=== PATIENT | male | born 1990 | race Caucasian/White ===

== ENCOUNTER 2018-11-23 20:40 | Observation (INO) | payer BC ==
[2018-11-23] MEDS ORDERED: Sodium Chloride 0.9% 2.5 ML Syringe FLUSH PRN (20:44)
[2018-11-23] MEDS ORDERED: Sodium Chloride 0.9% 10 ML Syringe FLUSH PRN (20:44)
[2018-11-23] MEDS ORDERED: Bacitracin Oint 1 GM U/D Packet TOP ONE (20:46)
[2018-11-23] MEDS ORDERED: Sodium Chloride 0.9% 1,000 ML IV ONE (20:46)
[2018-11-23] MEDS ORDERED: Morphine 2 MG/ML Syringe IVPUSH ONE (20:47)
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
[2018-11-23] MEDS ORDERED: Iopamidol 755 MG/ML 200 ML Multipack Bottle IVPUSH ONE (21:21)
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
[2018-11-23 22:14] LABS: CHLORIDE,CL 100 mmol/L (98-107); SODIUM,NA 135 mmol/L (136-148)
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
[2018-11-23] MEDS ORDERED: Lactated Ringers 1,000 ML IV SCH ×2 (23:00→23:45)
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
[2018-11-23] MEDS ORDERED: Ondansetron 4 MG/2 ML SDV IVPUSH PRN (23:49)
[2018-11-24] MEDS: HYDROmorphone 2 MG/ML Syringe IVPUSH PRN ×5 (00:34→14:36)
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
[2018-11-24] MEDS ORDERED: Clindamycin Phosphate in D5W 900 MG in Premix Bag 1 BAG IV SCH ×2 (14:00)
[2018-11-24] MEDS ORDERED: fentaNYL 250 MCG/5 ML SDV ONE (14:50)
[2018-11-24] MEDS ORDERED: Propofol 200 MG/20 ML SDV ONE (14:50)
[2018-11-24] MEDS ORDERED: Midazolam 1 MG/ML 2 ML SDV ONE (14:52)
[2018-11-24] MEDS ORDERED: Bupivacaine 0.25% 10 ML SDV ONE (14:53)
[2018-11-24] MEDS ORDERED: Lidocaine 2% 5 ML SDV ONE (15:57)
[2018-11-24] MEDS ORDERED: Rocuronium 100 MG/10 ML Syringe ONE (15:57)
[2018-11-24] MEDS ORDERED: Sugammadex Sodium 200 MG/2 ML VIAL ONE (16:00)
[2018-11-24] MEDS ORDERED: HYDROmorphone 2 MG/ML Syringe ONE (16:04)
[2018-11-24] MEDS ORDERED: Ketorolac 30 MG/ML SDV ONE (16:19)
--- NOTE | 2018-11-24 16:40 | PCM.OPNOTE ---
- General Post-Op/Procedure Note Date of Surgery/Procedure: 11/24/18 Operative Procedure(s): ORIF right ankle lateral malleolus and syndesmosis Findings: syndesmotic disruption Pre Op Diagnosis: right ankle lateral malleolus and syndesmotis disruption Post-Op Diagnosis: same Anesthesia Technique: General ET Tube Primary Surgeon: Ty Hoff Mai Shadow Graph Weight Operator: Angelina Scruggs EBL in mLs: 10 Complications: none Condition: Fair Free Text/Narrative:: Intake & Output 11/24/18 11/24/18 11/24/18 06:59 14:59 22:59 Intake Total 768 Output Total 800 Balance -32
[2018-11-24] MEDS ORDERED: Acetaminophen/HYDROcodone 325-5 MG Tab PO PRN (16:42)
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
--- NOTE | 2018-11-26 10:22 | CR ---
EXAMINATION: Right ankle HISTORY: Fracture COMPARISON: 11/23/2018 TECHNIQUE: 4 fluoroscopic images provided FINDINGS/IMPRESSION: Operative control films demonstrate screw and plate fixation of a distal fibular fracture with a syndesmotic anchor.
== END 2018-11-24 22:45 | disposition home or self-care (01) ==
LOC: MW.ED 20:40 → MW.MS 22:59
PROVIDERS: ADMIT Orthopaedic Surgery; ATTEND Orthopaedic Surgery
DX: S82.61XA Displaced fracture of lateral malleolus of right fibula, initial encounter for closed fracture (principal); S93.431A Sprain of tibiofibular ligament of right ankle, initial encounter; S00.81XA Abrasion of other part of head, initial encounter; S40.812A Abrasion of left upper arm, initial encounter; F17.290 Nicotine dependence, other tobacco product, uncomplicated; V29.3XXA Motorcycle rider (driver) (passenger) injured in unspecified nontraffic accident, initial encounter; Z88.0 Allergy status to penicillin
CPT/HCPCS: 27792; 27829; 36415; 70450; 70486; 71260; 72125; 73590; 73610; 73620; 74177; 76000; 80053; 80305; 81003; 83690; 85025; 85610; 93005; 96361; 96374; 99285; C1713; C1776; G0480; J0131; J0330; J1170; J1885; J2001; J2250; J2270; J2704; J3010; J3490; J7040; J7120; Q9967; 99284